=== PATIENT | male | born 1980 | race Caucasian/White ===

== ENCOUNTER → 2023-07-21 16:35 | Outpatient (CLI) | payer OTHER, SELFPAY ==
--- NOTE | 2023-07-21 16:40 | DI.MRI.S_ITS ---
PROCEDURE: MR LUMBAR SPINE WO CON INDICATIONS: BACK PAIN TECHNIQUE: Noncontrast sagittal T1 spin echo and T2 fast echo, sagittal STIR, and T2 fast spin echo through the lumbar spine. In cases with scoliosis, additional coronal T2 fast spin echo may be performed. COMPARISON: [facility] [place], [place], XR LUMBAR SPINE 2 OR 3 VIEWS, 07/13/2023, 11:08. FINDINGS: Image quality: Excellent. Alignment and Curvature: Straightening of the normal lumbar lordosis. Bone Marrow: Marrow is of normal overall signal. No acute vertebral body compression fractures. Spinal Cord: Conus medullaris terminates at the L2 level. Visualized cord demonstrates normal signal and size. Paraspinous Soft Tissues: No paravertebral masses. T12-L1: Normal appearance. L1-L2: Normal appearance. L2-L3: Normal appearance. L3-L4: Small central disc protrusion. Facet arthropathy. No central canal or neural foraminal stenosis. L4-L5: Mild disc desiccation and mild disc bulge. Facet arthropathy. No significant central canal stenosis. No neural foraminal stenosis. L5-S1: Mild disc desiccation height loss. Right subarticular disc extrusion likely impinging on the descending right S1 nerve root. No central canal stenosis. No neural foraminal stenosis. IMPRESSION: Mild degenerative changes of the lumbar spine with a right subarticular disc extrusion L5-S1 which likely impinges on the descending right S1 nerve root. Otherwise, no significant central canal or neural foraminal stenosis. Dictated by: Bala Rodriguez M.D. on 07/22/2023 at 8:21 Approved by: Bala Rodriguez M.D. on 07/22/2023 at 8:25
== END ==
LOC: MRI 16:39
PROVIDERS: Referring Provider Orthopaedic Surgery Orthopaedic Surgery of the Spine; Visit Provider Orthopaedic Surgery Orthopaedic Surgery of the Spine
DX: M51.16 Intervertebral disc disorders with radiculopathy, lumbar region (principal); M51.17 Intervertebral disc disorders with radiculopathy, lumbosacral region; M47.26 Other spondylosis with radiculopathy, lumbar region; M47.27 Other spondylosis with radiculopathy, lumbosacral region
CPT/HCPCS: 72148